=== PATIENT | male | born 1945 | race African-American/Black ===

== ENCOUNTER → 2023-09-19 | Outpatient (CLI) | payer MEDICARE ==
[~2023-09-19] MED LIST: ASPI-986 PO; CHON250C PO; GLUC100017 PO; SAW1CAPS3 PO; TAMS0.4C31 PO
== END | disposition home or self-care (01) ==
LOC: RAD 10:06
PROVIDERS: ATTEND Specialist
DX: M79.671 Pain in right foot (principal)
CPT/HCPCS: 73650